=== PATIENT | female | born 1955 | race Hispanic/Latino ===

== ENCOUNTER 2024-04-06 14:50 | Outpatient (CLI) | payer MEDICARE | END 2024-04-06 14:51 | disposition home or self-care (01) | LOC: BICMAMMO 14:50 | PROVIDERS: ATTEND Internal Medicine Endocrinology, Diabetes & Metabolism | DX: M81.8 Other osteoporosis without current pathological fracture (principal); M85.852 Other specified disorders of bone density and structure, left thigh | CPT/HCPCS: 77080 ==

== ENCOUNTER 2025-04-19 10:10 | Outpatient (CLI) | payer MEDICARE | END 2025-04-19 10:11 | disposition home or self-care (01) | LOC: BICMAMMO 10:10 | PROVIDERS: ATTEND Internal Medicine Endocrinology, Diabetes & Metabolism | DX: M81.8 Other osteoporosis without current pathological fracture (principal); M85.851 Other specified disorders of bone density and structure, right thigh | CPT/HCPCS: 77080 ==